=== PATIENT | male | born 1970 | race African-American/Black ===

== ENCOUNTER 2019-08-15 10:15 | Outpatient (CLI) | payer OTHER ==
--- NOTE | 2019-08-15 10:37 | RAD ---
XR Lumbar Spine 2 Or 3 View History: Limping Comparison: None. Findings: No acute fracture or malalignment. There is mild L5/S1 degenerative disc space narrowing po steriorly as well as L4/L5 narrowing. Posterior disc osteophyte complex at L5/S1. The spinous processes are intact. Low-grade 1 to 2 mm L5 over S1 retrolisthesis. Posterior disc osteophyte complex at L5/S1. SI joints are unremarkable. Paraspinal soft tissues are normal. Low-grade levoscoliosis lumbar spine. Impression: Mild spondylosis lumbar spine.
--- NOTE | 2019-08-15 12:20 | RAD ---
RIGHT HIP 2 VIEWS: HISTORY: Pain with limping. FINDINGS: Femoral head contour is normally maintained. Joint space appears normal. No fracture. No acute oss eous abnormality. IMPRESSION: No acute abnormality. POS: [facility]
== END 2019-08-15 10:16 | disposition home or self-care (01) ==
LOC: BICRAD 10:15
PROVIDERS: ATTEND Physician Assistant
DX: R26.89 Other abnormalities of gait and mobility (principal); M47.816 Spondylosis without myelopathy or radiculopathy, lumbar region
CPT/HCPCS: 36415; 72100; 87389

== ENCOUNTER 2020-02-04 07:50 | Outpatient (CLI) | payer BC ==
--- NOTE | 2020-02-04 10:20 | MRI ---
Exam: Brain MRI with and without contrast HISTORY: Trouble walking. Weakness. COMPARISON: None FINDINGS: Patient's braces do result in artifact. Gradient echo sequence: No hemorrhage Calvarium: Appropriate T1 marrow signal intensity Midline brain parenchyma: Unremarkable Cerebrum:No parenchymal mass, mass effect or midline shift. Brain volume is age-appropriate. Cortical cortes-white matter differentiation is preserved. There are nonspecific scattered T2 and FLAIR white matter hyperintensities involving the subcortical white matter as well as the periventricular white m atter. Ventricles: No evidence of hydrocephalus. Sinuses and mastoid air cells: Mild mucosal thickening of the paranasal sinuses. Adequate mastoid air cell aeration Diffusion: Central arterial flow is maintained. Absent restricted diffusion. Postcontrast images: No pathologic enhancement of the brain parenchyma. IMPRESSION: 1. No pathologic enhancement of the brain parenchyma. 2. Absent restricted diffusion. No acute infarct. 3. Scattered nonspecific T2 and FLAIR white matter hyperintensities. Findings may be due to sequelae of migraine headaches, demyelinating processes, chronic small vessel ischemic changes of the white matter. Clinical correlation is essential.
--- NOTE | 2020-02-04 10:37 | MRI ---
MRI LUMBAR SPINE WITHOUT CONTRAST: Date: 02/04/2020 INDICATION: History of sciatica. COMPARISON: Lumbar spinal radiographs dated 08/15/2019. FINDINGS: There is mild levoscoliosis of the lumbar spine. Bone marrow signal intensity is within normal limits . There are four lumbar-type vertebral levels seen on the comparison radiographs. The lowermost lumba r vertebral segment along this examination will be labeled L4. The conus is seen to terminate at T12- L1. At the L4-5 level, there is an asymmetric to the left broad based disc bulge with facet hypertrophy a nd loss of disc space height inducing moderate bilateral neural foraminal narrowing. At L3-4, there is a broad based disc bulge with facet hypertrophy inducing moderate to severe bilater al neural foraminal narrowing. At L2-3, there is a broad based bulge inducing mild bilateral neural foraminal narrowing. At L1-L2, there is no appreciable central canal or neural foraminal narrowing. At T12-L1, there is no appreciable central canal or neural foraminal narrowing. At T11-T12, there is no appreciable central canal or neural foraminal narrowing. IMPRESSION: 1. Moderate multilevel spondylosis of the lumbar spine with moderate to severe bilateral neural fora skye narrowing at L3-4, moderate bilateral neural foraminal narrowing at L4-5 and mild bilateral eri ral foraminal narrowing at L2-3. 2. Four lumbar-type vertebral bodies. Please see numbering as above. POS: [facility]
--- NOTE | 2020-02-04 12:04 | RAD ---
LUMBAR SPINE 4 VIEWS INCLUDING FLEXION AND EXTENSION LATERAL VIEWS: Date: 02/04/2020 HISTORY: Sciatica. Limping. FINDINGS: Disc osteophytosis changes with some disc space narrowing, particularly at L4-L5, with some facet art hrosis. No abnormal translation between flexion and extension. No focal bone lesion. IMPRESSION: Spondylosis with some disc space narrowing and disc osteophytosis at L4-L5. No abnormal translation b etween flexion and extension. POS: [facility]
== END 2020-02-04 07:51 | disposition home or self-care (01) ==
LOC: BICMRI 07:50
PROVIDERS: ATTEND Neurological Surgery
DX: M51.16 Intervertebral disc disorders with radiculopathy, lumbar region (principal); R53.1 Weakness; R26.2 Difficulty in walking, not elsewhere classified; M47.816 Spondylosis without myelopathy or radiculopathy, lumbar region; M48.061 Spinal stenosis, lumbar region without neurogenic claudication; M25.78 Osteophyte, vertebrae; R90.89 Other abnormal findings on diagnostic imaging of central nervous system
CPT/HCPCS: 70553; 72120; 72148; 82565

== ENCOUNTER 2020-03-17 12:38 | Outpatient (CLI) | payer BC ==
--- NOTE | 2020-03-17 15:36 | MRI ---
MRI thoracic spine with and without contrast: 03/17/2020 HISTORY: 49-year-old male. R 26.89, limping R 29.898, weakness of left upper extremity R 29.898, weakness of right lower extremity FINDINGS: There is a lateral curvature.. Vertebral body heights are maintained. No abnormal enhancement, mass, or abnormal signal, involving the intramedullary, extramedullary-intradural, extradural, intraosseous, or perivertebral, spaces. No cord compression. No high-grade central spinal canal steno sis at any level. No syrinx. Neural foraminal stenosis, mild and moderate, at various levels, including bilateral T1-2 and bilateral T10-11. IMPRESSION: 1. Lateral curvature of thoracic spine. 2. Neural foraminal stenosis at some levels. 3. Otherwise negative.
--- NOTE | 2020-03-17 15:46 | MRI ---
MRI cervical spine with and without contrast: DATE: 03/17/2020 HISTORY: 49-year-old male with left upper extremity weakness. COMPARISON: None FINDINGS: No Chiari I malformation. Cervical spinal cord is normal in size and signal, with no abnormal enhance ment or syrinx. Vertebral body heights are maintained. Normal bone marrow signal. No abnormal enhancement or mass in the extra medullary-intradural, intraosseous, or perivertebral, spaces. Loss o f lordosis with mild kyphosis. Mild disc space narrowing at several levels, most notably C5-6. No high-grade facet DJD at any level. C1-2: No central stenosis. C2-3: Essentially normal. C3-4: Developmentally short pedicles and minimal disc [id number] osteophyte complex result in mild central spinal canal stenosis. Small bilateral uncinate process osteophytes cause moderate right neural foraminal stenosis and moderate to severe left neural foraminal stenosis. C4-5: No high-grade central spinal canal stenosis. Moderate bilateral neural foraminal stenosis. C5-6: Prominent broad-based disc-osteophyte complex abuts and minimally indents the ventral surface o f spinal cord. Mild central spinal canal stenosis. Small bilateral uncinate process osteophytes. No significant right neural foraminal stenosis. Moderate left neural foraminal stenosis. C6-7: Small broad-based disc-osteophyte complex approaches ventral surface of spinal cord. Moderate c entral spinal canal stenosis. Small bilateral uncinate process osteophytes. Mild right neural foraminal stenosis. Moderate to severe left neural foraminal stenosis. C7-T1: Tiny left paracentral focal disc protrusion. No significant central spinal canal stenosis. Mil d to moderate right neural foraminal stenosis. Moderate left neural foraminal stenosis. IMPRESSION: 1. Predominantly mild cervical spondylosis, with several levels of mild degenerative disc disease, in cluding C5-6 where broad-based disc-osteophyte complex abuts the spinal cord. 2. Several levels of bilateral moderate neural foraminal stenosis.
== END 2020-03-17 12:39 | disposition home or self-care (01) ==
LOC: SCSMRI 12:38
PROVIDERS: ATTEND Internal Medicine
DX: R26.89 Other abnormalities of gait and mobility (principal); R29.898 Other symptoms and signs involving the musculoskeletal system; R90.89 Other abnormal findings on diagnostic imaging of central nervous system; M47.812 Spondylosis without myelopathy or radiculopathy, cervical region; M50.322 Other cervical disc degeneration at C5-C6 level; M25.78 Osteophyte, vertebrae; M48.02 Spinal stenosis, cervical region; M43.9 Deforming dorsopathy, unspecified; M48.04 Spinal stenosis, thoracic region
CPT/HCPCS: 72156; 72157

== ENCOUNTER 2024-08-12 09:27 | Outpatient (CLI) | payer BC | END 2024-08-12 09:28 | disposition home or self-care (01) | LOC: MRI 09:27 | PROVIDERS: ATTEND Internal Medicine | DX: M47.22 Other spondylosis with radiculopathy, cervical region (principal) | CPT/HCPCS: 72141 ==

== ENCOUNTER 2024-11-27 10:44 | Outpatient (CLI) | payer BC | END 2024-11-27 10:45 | disposition home or self-care (01) | LOC: BICMRI 10:44 | PROVIDERS: ATTEND Family Medicine Sports Medicine | DX: S46.011A Strain of muscle(s) and tendon(s) of the rotator cuff of right shoulder, initial encounter (principal); M19.011 Primary osteoarthritis, right shoulder; M25.411 Effusion, right shoulder; M75.121 Complete rotator cuff tear or rupture of right shoulder, not specified as traumatic ==